=== PATIENT | female | born 1995 | race African-American/Black ===

== ENCOUNTER 2017-06-15 21:52 | Emergency (ER) | payer OTHER ==
[~2017-06-15] VITALS: Ht 165.1 cm; Wt 85.0 kg
[2017-06-15 22:18] VITALS: BP 116/58; PULSE 95; RESP 20; TEMP 98.6; O2SAT 100
[2017-06-15] MEDS ORDERED: KETOROLAC TROMETHAMINE 30 MG/ML (IVP) VIAL IV PUSH ONE (23:15)
[2017-06-15] MEDS ORDERED: SODIUM CHLORIDE 0.9% FLUSH 10 ML FLUSH IVF PRN (23:15)
--- NOTE | 2017-06-15 23:20 | PD ---
HPI Chief Complaint: Cold / Flu Symptoms Time Seen by Provider: 23:05 Travel History International Travel<30 days: No Contact w/Intl Traveler<30days: No Traveled to known affect area: No History of Present Illness HPI 21-year-old black female presents emergency department with complaints of cough. She states that she has been coughing now for over 6 months. She was seen by an urgent care last month was given a prescription for Cipro. She states that she felt she had a allergic reaction to it and stopped it. She has had persistent cough. She denies any associated fever or chills. No ear pain or sore throat. No nausea or vomiting. No abdominal pain or urinary symptoms. She states that she does feel short of breath at times. No sputum production. PFSH Past Medical History Medical History: Denies Significant Hx Tetanus Vaccination: < 5 Years ?: Unknown LMP: 03/02/17 Past Surgical History Surgical History: No Previous Surgery Social History Alcohol Use: No Tobacco Use: No Substance Use: No Allergies-Medications (Allergen,Severity, Reaction): Coded Allergies: ciprofloxacin (Verified Adverse Reaction, Intermediate, Diarrhea, 06/15/17) amoxicillin (Verified Adverse Reaction, Unknown, Diarrhea, 06/15/17) Reported Meds & Prescriptions Reported Meds & Active Scripts Active No Active Prescriptions or Reported Medications Review of Systems Except as stated in HPI: all other systems reviewed are Neg Physical Exam Narrative GENERAL: Well-developed, well-nourished in no acute distress. Nontoxic appearing. HEAD: Normocephalic, atraumatic. EYES: Pupils equal round and reactive. Extraocular motions intact. No scleral icterus. No injection or drainage. ENT: TMs clear without erythema. The external auditory canals clear. Nose: clear . Posterior pharynx is pink and moist. No tonsillar edema or exudate. Uvula midline. Airway patent. NECK: Trachea midline.Supple, nontender, moves head freely. No central bony tenderness or spasm. CARDIOVASCULAR: Regular rate and rhythm without murmurs, gallops, or rubs. RESPIRATORY: Clear to auscultation. Breath sounds equal bilaterally. No wheezes , rales, or rhonchi. GASTROINTESTINAL: Abdomen soft, non-tender, nondistended. No hepato-splenomegaly , or palpable masses. No guarding. EXTREMITIES: No clubbing, cyanosis, or edema. No joint tenderness, effusion, or edema noted. BACK: Nontender without deformity or crepitance. No flank tenderness. Data Data Last Documented VS Vital Signs Date Time Temp Pulse Resp B/P (MAP) Pulse Ox O2 Delivery O2 Flow Rate FiO2 06/15/17 23:00 Room Air 06/15/17 22:18 98.6 95 20 116/58 (77) 100 Orders Orders Electrocardiogram (06/15/17 23:12) Sodium Chloride 0.9% Flush (Ns Flush) (06/15/17 23:15) Chest, Pa & Lat (06/15/17 23:12) Ketorolac Inj (Toradol Inj) (06/15/17 23:15) MDM Medical Decision Making Medical Screen Exam Complete: Yes Emergency Medical Condition: Yes Medical Record Reviewed: Yes Interpretation(s) Last 24 hours Impressions Chest X-Ray 06/15/17 2641 Signed Impressions: Service Date/Time: Thursday, June 15, 2017 23:23 - CONCLUSION: No acute cardiopulmonary disease. Glen Graham MD Differential Diagnosis MDM: High Differential diagnoses: Pneumonia, bronchitis, URI, asthma, RAD, Narrative Course Patient's chest x-ray is negative. The patient has been medically cleared. This is cough Diagnosis Primary Impression: Cough in adult Patient Instructions: General Instructions Additional Instructions: Rest. Increase fluids. Medications as directed. Claritin or Zyrtec daily. Follow-up with a primary care doctor in 1 week. Return to the ER for emergencies. Med/Other Pt SpecificInfo: Prescription(s) given Scripts Prednisone (Deltasone) 20 Mg Tab 20 MG PO BID, #10 TAB 0 Refills Prov: Alethea Arreola MD 06/16/17 Albuterol 6.7 GM Inh (Proventil Hfa 6.7 GM Inh) 90 Mcg/Act Aer 2 PUFF INH Q4-6H Y for SHORTNESS OF BREATH, #1 INHALER 0 Refills Prov: Alethea Arreola MD 06/16/17 Disposition: 01 DISCHARGE HOME Condition: Stable Cornelius Fairbanks Jun 15, 2017 23:20
--- NOTE | 2017-06-15 23:34 | RADRPT ---
EXAM DATE/TIME: 06/15/2017 23:23 [facility] COMPARISON: No previous studies available for comparison. INDICATIONS : Year long cough. MEDICAL HISTORY : None. SURGICAL HISTORY : None. ENCOUNTER: Initial ACUITY: >1 year PAIN SCORE: 0/10 LOCATION: Bilateral chest FINDINGS: PA and lateral views of the chest demonstrate the lungs to be symmetrically aerated without evidence of mass, infiltrate or effusion. The cardiomediastinal contours are unremarkable. Osseous structure s are intact. CONCLUSION: No acute cardiopulmonary disease. Glen Graham MD on June 15, 2017 at 23:33 Board Certified Radiologist. This report was verified electronically.
[2017-06-16] MEDS ORDERED: ALBU6.7H INH (00:04)
[2017-06-16] MEDS ORDERED: PRED-503 PO (00:04)
--- NOTE | 2017-06-16 09:07 | EKG ---
Date Performed: 06/15/2017 Time Performed: 23:59:05 PTAGE: 21 years EKG: Sinus rhythm NORMAL ECG NO PREVIOUS TRACING DOCTOR: Rubin Morrison Interpretating Date/Time 06/16/2017 09:04:59
== END 2017-06-16 00:50 | disposition home or self-care (01) ==
LOC: NEPD 21:52
DX: R05 Cough (principal); Z88.0 Allergy status to penicillin; Z88.1 Allergy status to other antibiotic agents
CPT/HCPCS: 71046; 93005; 99284